=== PATIENT | female | born 1995 | race Caucasian/White ===

== ENCOUNTER → 2017-01-21 05:50 | Emergency (ER) | payer BC ==
[~2017-01-21 05:50] MED LIST: ALBUTEROL INHALER; ANTIBIOTIC PO; AZITHROMAX; BACTRIM DS TABL1 TA1 PO; BIRTH CONTROL PO; EFFEXOR75 M1 PO; FLEXERIL10 MG PO; FLONASE16 GM; OMNICEF300 MG PO; VIORELE 28 DAY1 EACH PO; ZOFRAN ODT4 MG PO; ZYRTEC10 M2 PO
== END | disposition left against medical advice (07) ==
LOC: CED 05:50
DX: Z53.21 Procedure and treatment not carried out due to patient leaving prior to being seen by health care provider (principal)

== ENCOUNTER 2017-01-29 09:52 | Emergency (ER) | payer BC ==
--- NOTE | ~2017-01-29 | CR63 ---
[facility] A Service of [facility] RADIOLOGY TEXT RESULTS PATIENT: JOSE RODRIGUEZ LOCATION: SED : [birth year] UNIT #: [id number] AGE: [address]: Nino Gong DO SEX: F ORDER DR: [id number] [place] [id number] E MR#: [id number] Acc #: [id number] NAME: JOSE RODRIGUEZ : 1995 SEX: F STUDY DATE/TIME: 01/29/2017 9:59 UNIT: SED ROOM: STUDY DESCRIPTION: CR Chest 2 View Attending Physician: Nino Gong Ordering Physician: Marshal Summers M.D. Primary Care Physician: Gardenia Mendez A.P.R.N. MEDICAL IMAGING REPORT This report is preliminary unless electronic signature is present. EXAM Chest x-ray, 2 views. DATE OF EXAM 01/29/2017 HISTORY Coughing, flu symptoms for 3 weeks, short of air, cough. History of pneumonia, chest pain and congestion. COMMENT 2 views of the chest reviewed. COMPARISON The comparison study is from 09/24/2016. FINDINGS There is no pleural effusion. The heart size is normal. There is no acute-appearing parenchymal infiltrate or acute congestive failure. There is no pneumothorax. IMPRESSION No active disease. Dictated by... Elina Valencia M.D. THIS IS AN ELECTRONICALLY VERIFIED REPORT Elina Valencia M.D. at 01/30/2017 6:19 AM SAC/jt [facility] A Service of [facility] RADIOLOGY TEXT RESULTS PATIENT: JOSE RODRIGUEZ LOCATION: SED : [birth year] UNIT #: [id number] AGE: [address]: Nino Gong DO SEX: F ORDER DR: TD: 01/29/2017 22:55 JOB #: [id number] MEDICAL IMAGING REPORT
[~2017-01-29 09:52] MED LIST changes: -ALBUTEROL INHALER; -ANTIBIOTIC PO; -AZITHROMAX
[2017-01-29] MEDS ORDERED: AZITHROMAX (11:03)
== END 2017-01-29 11:17 | disposition home or self-care (01) ==
LOC: SED 09:52
DX: J20.9 Acute bronchitis, unspecified (principal); F17.200 Nicotine dependence, unspecified, uncomplicated
CPT/HCPCS: 71020; 94640; 99283

== ENCOUNTER 2017-05-02 20:30 | Emergency (ER) | payer BC ==
--- NOTE | ~2017-05-02 | CR63 ---
[facility] A Service of [facility] RADIOLOGY TEXT RESULTS PATIENT: JOSE RODRIGUEZ LOCATION: SED : [birth year] UNIT #: [id number] AGE: [address]: BISHOP BROWN SEX: F ORDER DR: [id number] [place] [id number] E MR#: [id number] Acc #: [id number] NAME: JOSE RODRIGUEZ : 1995 SEX: F STUDY DATE/TIME: 05/02/2017 21:44 UNIT: SED ROOM: STUDY DESCRIPTION: CR Chest 2 View Attending Physician: Bishop Brown Ordering Physician: Bishop Brown Primary Care Physician: Gardenia Mendez A.P.R.N. MEDICAL IMAGING REPORT This report is preliminary unless electronic signature is present. EXAM Chest x-ray, 05/02/17 HISTORY 21-year-old female in the ED with 1-week history of cough and congestion. TECHNIQUE PA and lateral chest x-ray. FINDINGS The examination is negative. Heart size and pulmonary vascularity are normal. The lungs are expanded and clear. No visible pulmonary infiltrate or pleural effusion. No change since 01/29/17. IMPRESSION Negative chest. No change since 01/29/17. Dictated by... Adis Nice M.D. THIS IS AN ELECTRONICALLY VERIFIED REPORT Adis Nice M.D. at 05/03/2017 6:02 AM ART/alin TD: 05/03/2017 02:00 JOB #: [id number] MEDICAL IMAGING REPORT Page 1 of 1
[~2017-05-02 20:30] MED LIST changes: +AZITHROMAX
== END 2017-05-02 22:47 | disposition home or self-care (01) ==
LOC: SED 20:30
DX: J18.9 Pneumonia, unspecified organism (principal)
CPT/HCPCS: 71020; 84703; 94640; 99283

== ENCOUNTER 2017-05-07 17:04 | Emergency (ER) | payer BC ==
--- NOTE | ~2017-05-07 | CR63 ---
[facility] A Service of [facility] RADIOLOGY TEXT RESULTS PATIENT: JOSE RODRIGUEZ LOCATION: SED : [birth year] UNIT #: [id number] AGE: [address]: YUE YOUNG SEX: F ORDER DR: [id number] [place] [address] [id number] E MR#: [id number] Acc #: [id number] NAME: JOSE RODRIGUEZ : 1995 SEX: F STUDY DATE/TIME: 05/07/2017 17:45 UNIT: SED ROOM: STUDY DESCRIPTION: CR Chest 2 View Attending Physician: Yue Young A.P.R.N. Ordering Physician: Yue Young A.P.R.N. Primary Care Physician: Gardenia Mendez A.P.R.N. MEDICAL IMAGING REPORT This report is preliminary unless electronic signature is present. EXAM PA and lateral chest, 2 views. DATE 05/07/17 COMPARISON 05/02/17 CLINICAL HISTORY Four day history of pneumonia. Also 4 day history of cough and congestion. FINDINGS PA and lateral examination of the chest upright shows a good expansion of the parenchyma with a normal distribution of the pulmonary vascularity. There is no indication of congestion, effusion, infiltrate, tumor, or nodular density. The pleural reflections and diaphragmatic contours are normal. The cardiac silhouette and mediastinal anatomy is within normal limits. IMPRESSION Normal/negative PA and lateral chest. Dictated by... Vernon Lyman M.D. THIS IS AN ELECTRONICALLY VERIFIED REPORT Vernon Lyman M.D. at 05/17/2017 4:00 PM [facility] A Service [facility] RADIOLOGY TEXT RESULTS PATIENT: JOSE RODRIGUEZ LOCATION: SED : [birth year] UNIT #: [id number] AGE: [address]: YUE YOUNG SEX: F ORDER DR: Gallito TD: 05/08/2017 00:21 JOB #: [id number] MEDICAL IMAGING REPORT Page 1 of 1
[2017-05-07] MEDS ORDERED: ANTIBIOTIC PO (17:09)
[2017-05-07] MEDS ORDERED: ALBUTEROL INHALER (17:09)
[2017-05-07 18:16] LABS: BASOPHIL# 0.1 X10e3 (0-0.3); BASOPHIL% 0.4 % (0-2.5); EOSINOPHIL# 0.2 X10e3 (0-0.7); EOSINOPHIL% 1.7 % (0.0-7.0); HEMATOCRIT 40.2 % (35.0-45.0); HEMOGLOBIN 13.8 gm/dL (12.0-16.0); LYMPHOCYTE# 2.1 X10e3 (1.0-3.5); LYMPHOCYTE% 14.8 % (17.0-45.0); MEAN CELL VOLUME 87.8 FL (83-96); MEAN CORPUSCULAR HEMOGLOBIN 30.1 PG (28-34); MEAN CORPUSCULAR HGB CONC 34.2 g/dL (30-36); MEAN PLATELET VOLUME 8.8 FL (6.5-11.5); MONOCYTE# 0.7 X10e3 (0-1.0); MONOCYTE% 5.3 % (3.0-12.0); NEUTROPHIL# 10.9 X10e3 (1.5-7.1); NEUTROPHIL% 77.8 % (40-75); PLATELET COUNT 246 X10e3 (140-420); RED BLOOD COUNT 4.58 X10e (3.90-5.30); RED CELL DISTRIBUTION WIDTH 13.6 % (11.0-15.5)
[2017-05-07 18:18] LABS: DIFF IND NO
[2017-05-07 18:30] LABS: ALBUMIN SERUM 4.3 g/dL (3.5-5.0); BILIRUBIN,TOTAL 0.6 mg/dL (0.2-2.0); BUN/CREATININE RATIO 21.25; CALCIUM SERUM 8.9 mg/dL (8.4-10.2); CREATININE SERUM 0.8 mg/dL (0.6-1.4); PROTEIN TOTAL SERUM 7.5 g/dL (6.0-8.3)
== END 2017-05-07 19:07 | disposition home or self-care (01) ==
LOC: SED 17:04
PROVIDERS: Nurse Practitioner
DX: J40 Bronchitis, not specified as acute or chronic (principal); F32.9 Major depressive disorder, single episode, unspecified; Z87.01 Personal history of pneumonia (recurrent); Z79.2 Long term (current) use of antibiotics; Z86.14 Personal history of Methicillin resistant Staphylococcus aureus infection
CPT/HCPCS: 36415; 71020; 80053; 83605; 84703; 85025; 87040; 94640; 96361; 96374; 99285; J2930

== ENCOUNTER 2017-07-22 00:20 | Emergency (ER) | payer SELFPAY ==
[~2017-07-22] VITALS: Ht 154.9 cm; Wt 63.5 kg
--- NOTE | ~2017-07-22 | EKG ---
PATIENT: JOSE RODRIGUEZ UNIT #: [id number] Ventricular Rate: 64 BPM Atrial Rate: 64 BPM P-R Interval: 138 ms QRS Duration: 76 ms Q-T Interval: 382 ms QTC Calculation(Bezet): 394 ms P Ashmore: 23 degrees Calculated R Ashmore: 24 degrees Calculated T Ashmore: 44 degrees Diagnosis Line: Normal sinus rhythm Diagnosis Line: Normal ECG Diagnosis Line: No previous ECGs available Diagnosis Line: Confirmed by YAYO TRIMBLE MD ([id number]) on 07/22/2017 Diagnosis Line: 4:33:42 PM INTERPRETING MD: NAI PEMBERTON
--- NOTE | ~2017-07-22 | CT71 ---
[facility] A Service of [facility] RADIOLOGY TEXT RESULTS PATIENT: JOSE RODRIGUEZ LOCATION: SED : [birth year] UNIT #: [id number] AGE: [address]: Thad Whaley MD SEX: F ORDER DR: [id number] [place] [address] [id number] E MR#: [id number] Acc #: [id number] NAME: JOSE RODRIGUEZ : 1995 SEX: F STUDY DATE/TIME: 07/22/2017 1:41 UNIT: SED ROOM: STUDY DESCRIPTION: CT Head Wo Contrast Attending Physician: Thad Whaley M.D. Ordering Physician: Krista Chavez Pa-C Primary Care Physician: Gardenia Mendez A.P.R.N. MEDICAL IMAGING REPORT This report is preliminary unless electronic signature is present. EXAM CT head, noncontrast, 07/22/2017 HISTORY 22-year-old female in the ED after a reported syncopal episode yesterday evening. She now notes a migraine-type headache with left-side numbness and tingling. TECHNIQUE CT examination of the head without IV contrast. This CT examination was performed with one or more of the following radiation dose reduction techniques: automatic exposure control, adjustment of mA and/or kV according to patient size, and iterative reconstruction. FINDINGS The examination is negative. No evidence of intracranial hemorrhage, mass, mass effect, cerebral edema, hydrocephalus or additional abnormality. IMPRESSION Negative head CT examination. Dictated by... Adis Nice M.D. THIS IS AN ELECTRONICALLY VERIFIED REPORT Adis Nice M.D. at 07/25/2017 11:06 PM ART/alia TD: 07/22/2017 13:44 JOB #: [id number] [facility] A Service of [facility] RADIOLOGY TEXT RESULTS PATIENT: JOSE RODRIGUEZ LOCATION: SED : [birth year] UNIT #: [id number] AGE: [address]: Thad Whaley MD SEX: F ORDER DR: MEDICAL IMAGING REPORT Page 1 of 1
[~2017-07-22 00:20] MED LIST changes: +ALBUTEROL INHALER; +ANTIBIOTIC PO
[2017-07-22 01:16] LABS: URINE APPEARANCE CLEAR; URINE BILIRUBIN NEG (NEG); URINE BLOOD NEG (NEG); URINE COLOR YELLOW; URINE GLUCOSE NEG (NORM); URINE KETONE NEG (NEG); URINE LEUKOCYTE ESTERASE NEG (NEG); URINE NITRATE NEG (NEG); URINE PROTEIN NEG (NEG); URINE SOURCE CLEAN CATCH; URINE SPECIFIC GRAVITY 1.025 (1.003-1.035); URINE UROBILINOGEN 0.2 MG/DL (NORM)
[2017-07-22 01:17] LABS: MICRO INDICATED? NO
[2017-07-22 01:26] LABS: BASOPHIL# 0.1 X10e3 (0-0.3); BASOPHIL% 0.7 % (0-2.5); EOSINOPHIL# 0.3 X10e3 (0-0.7); EOSINOPHIL% 3.3 % (0.0-7.0); HEMATOCRIT 41.5 % (35.0-45.0); LYMPHOCYTE# 2.8 X10e3 (1.0-3.5); LYMPHOCYTE% 36.4 % (17.0-45.0); MEAN CORPUSCULAR HEMOGLOBIN 30.4 PG (28-34); MEAN CORPUSCULAR HGB CONC 33.7 g/dL (30-36); MEAN PLATELET VOLUME 8.3 FL (6.5-11.5); MONOCYTE# 0.6 X10e3 (0-1.0); MONOCYTE% 8.1 % (3.0-12.0); NEUTROPHIL# 3.9 X10e3 (1.5-7.1); NEUTROPHIL% 51.5 % (40-75); PLATELET COUNT 237 X10e3 (140-420); RED BLOOD COUNT 4.61 X10e (3.90-5.30); RED CELL DISTRIBUTION WIDTH 13.1 % (11.0-15.5); WHITE BLOOD COUNT 7.7 X10e3 (4.0-10.5)
[2017-07-22 01:29] LABS: AMPHETAMINE NEG (NEG); BARBITURATES NEG (NEG); BENZODIAZEPINES NEG (NEG); COCAINE NEG (NEG); MARIJUANA POS (NEG); OPIATES NEG (NEG); TRICYCLIC ANTIDEPRESSANTS NEG (NEG); U METHADONE NEG (NEG)
[2017-07-22 01:39] LABS: DIFF IND NO
[2017-07-22 01:49] LABS: ALBUMIN SERUM 4.1 g/dL (3.5-5.0); BILIRUBIN,TOTAL 0.2 mg/dL (0.2-2.0); CALCIUM SERUM 8.7 mg/dL (8.4-10.2); GLOM FILT RATE Estimated 81.1 mL/min (>60); PROTEIN TOTAL SERUM 7.1 g/dL (6.0-8.3)
== END 2017-07-22 02:57 | disposition home or self-care (01) ==
LOC: SED 00:20
PROVIDERS: Physician Assistant Medical
DX: R51 Headache (principal); R20.9 Unspecified disturbances of skin sensation; J45.909 Unspecified asthma, uncomplicated; F32.9 Major depressive disorder, single episode, unspecified
CPT/HCPCS: 36415; 70450; 80053; 80307; 81003; 84703; 85025; 93005; 96361; 96365; 96374; 96375; 99284; J1200; J1885; J2765